=== PATIENT | female | born 1980 | race Two or more races ===

== ENCOUNTER 2018-12-22 01:48 | Emergency (ER) | payer BC, OTHER ==
[~2018-12-22] VITALS: Ht 157.5 cm; Wt 77.1 kg
[2018-12-22] MEDS ORDERED: IV NS 0.9% 500 ML BAG IV ONE (02:30)
[2018-12-22] MEDS ORDERED: KETOROLAC TROMETHAMINE INJ 30 MG/ML VIAL IV ONE (02:30)
[2018-12-22] MEDS ORDERED: KETOROLAC TROMETHAMINE INJ 30 MG/ML VIAL ONE (02:31)
--- NOTE | 2018-12-22 02:33 | NUR ---
PT BIBSELF C/O LOWER ABDOMINAL CRAMPING AND VAGINAL BLEEDING X4HR SALES RECRUITMENT SPECIALIST. PT DENIES DYSURIA, NAUSEA, VOMITTING. PT AAOX4. RESPIRATIONS EVEN AND UNLABORED. SKIN WARM AND INTACT. VITAL SIGNS STABLE. AMBULATORY WITH STEADY GAIT. NO ACUTE DISTRESS NOTED AT THIS TIME. PLACED IN GOWN AND ON MONITOR, WILL CONTINUE TO MONITOR
--- NOTE | 2018-12-22 02:36 | NUR ---
IV INITIATED RAC 20G. LABS DRAWN FROM SITE. COLOR COATER AT BEDSIDE FOR BLOOD DRAW. IV INTACT AND PATENT, PLACED ON SALINE LOCK
[2018-12-22 02:46] LABS: BASOPHILS # (AUTO) 0.1 /CMM (0.0-0.2); BASOPHILS % (AUTO) 0.8 % (0.0-2.0); EOSINOPHILS % (AUTO) 1.2 % (0.0-6.0); HEMATOCRIT 40 % (33-45); HEMOGLOBIN 13.4 g/dL (11.5-14.8); LYMPHOCYTES # (AUTO) 1.2 /CMM (0.8-4.8); LYMPHOCYTES % (AUTO) 17.5 % (20.0-44.0); MEAN CORPUSCULAR HGB CONC 34 g/dl (31.0-36.0); MEAN CORPUSCULAR VOLUME 91 fL (82-100); MONOCYTES # (AUTO) 0.5 /CMM (0.1-1.30); MONOCYTES % (AUTO) 6.8 % (2.0-12.0); NEUTROPHILS # (AUTO) 5.1 /CMM (1.8-8.9); NEUTROPHILS % (AUTO) 73.7 % (43.0-81.0); PLATELET COUNT (AUTO) 233 /CMM (150-450); RED BLOOD CELL COUNT(AUTO) 4.37 MIL/uL (4.0-5.2); WHITE BLOOD COUNT (AUTO) 6.9 K/uL (4.3-11.0)
[2018-12-22 03:04] LABS: CALCIUM, SERUM 8.4 mg/dL (8.5-10.1); POTASSIUM 3.7 mmol/L (3.5-5.1)
[2018-12-22] MEDS ORDERED: ONDANSETRON HCL/PF 4 MG/2 ML VIAL ONE (03:05)
[2018-12-22] MEDS ORDERED: HYDROMORPHONE 1 MG/1 ML DISP.SYRIN ONE ×2 (03:06→04:37)
--- NOTE | 2018-12-22 03:29 | NUR ---
SPEECH/LANGUAGE THERAPIST AT BEDSIDE FOR REDRAW
[2018-12-22] MEDS ORDERED: HYDROMORPHONE 1 MG/1 ML DISP.SYRIN IV ONE ×2 (03:30→05:00)
[2018-12-22] MEDS ORDERED: ONDANSETRON HCL/PF - ER 4 MG/2 ML VIAL IV ONE (03:30)
[2018-12-22 03:39] LABS: ALBUMIN 3.6 g/dL (3.4-5.0); BILIRUBIN,DIRECT 0.1 mg/dL (0.0-0.2); BILIRUBIN,TOTAL 0.3 mg/dL (0.2-1.0); TOTAL PROTEIN, SERUM 7.1 g/dL (6.4-8.2)
--- NOTE | 2018-12-22 03:50 | NUR ---
EXHIBITION CARVER TO US AT BEDSIDE
--- NOTE | 2018-12-22 04:28 | NUR ---
PT IS A CANIDATE FOR RHOGRAM. DR. NIK CESAR.
--- NOTE | 2018-12-22 04:30 | NUR ---
PUBLIC HEALTH TEACHER TO DR. ZARAGOZA AT BEDSIDE FOR PELVIC EXAM
--- NOTE | 2018-12-22 04:46 | NUR ---
Patient discharged to home in stable condition. Written and verbal after care instructions given. Patient verbalizes understanding of instruction.IV removed. Catheter intact and site benign. Pressure and 4x4 applied to site. No bleeding noted.Pt ambulatory with a steady gait
[2018-12-22] MEDS ORDERED: ONDANSETRON 4 MG TAB.RAPDIS ONE (04:50)
--- NOTE | 2018-12-22 04:50 | NUR ---
PT BECAME NAUSEOUS UPON DISCHARGE. PER VERBAL MD ORDER, WILL ADMINISTER ZOFRAN ODT X1 NOW
[2018-12-22 04:54] VITALS: BP 116/73
[2018-12-22] MEDS ORDERED: ONDANSETRON 4 MG TAB.RAPDIS SL ONE (05:00)
== END 2018-12-22 04:55 | disposition home or self-care (01) ==
LOC: ER 01:51
DX: O03.9 Complete or unspecified spontaneous abortion without complication (principal)
CPT/HCPCS: 36415; 76856; 80048; 80076; 84702; 85025; 85730; 96374; 96375; 96376; 99284; J1170 ×2; J1885; J2405 ×2; J7040; Q0162